=== PATIENT | female | born 2000 | race Caucasian/White ===

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

== ENCOUNTER → 2019-01-08 | Outpatient (CLI) | payer OTHER ==
--- NOTE | 2019-01-08 12:53 | US ---
EXAMINATION TYPE: Transabdominal DATE OF EXAM: 01/08/2019 12:24 PM COMPARISON: NONE CLINICAL HISTORY: Absent heart tones O76. Dates, hx of neg heart tones at office EXAM PERFORMED: Transabdominal (TA) EXAM MEASUREMENTS: GESTATIONAL AGE / DATING Dates by LMP: (12 weeks/0 days) EDC: 07/23/2019 Dates by First Scan: No previous this is first scan Dates by Current Scan for: (12 weeks/0 days) EDC: 07/23/2019 MATERNAL ANATOMY Uterus: 13.5 x 8.7 x 5.0 cm Right Ovary: 3.1 x 1.7 x 1.9 cm Left Ovary: 3.6 x 1.6 x 1.5 cm Post CDS / Adnexa: no free fluid Presence of free fluid: no Presence of corpus luteal cyst: no Presence of subchorionic bleed: no GESTATION / SURVEY CRL: 5.3 cm (12 weeks/0 days) MSD: seen, not measured Yolk Sac (normal less than 6mm): 4.7 mm Heart Rate: 166 bpm Rhythm: Normal IUP: Live IUP Date of LMP: 10/16/2018, G1 Beta HcG (if available): Not available at this time Single live IUP measuring 12 weeks 0 days IMPRESSION: Single live intrauterine with a sonographic age of 12 weeks and 0 days and teodora mated date of delivery of 07/23/2019, concordant with menstrual age. heart rate is measured at 1 66 bpm.
== END | disposition home or self-care (01) ==
LOC: RADUSWWP 11:59
PROVIDERS: ATTEND Obstetrics & Gynecology
DX: O76 Abnormality in fetal heart rate and rhythm complicating labor and delivery (principal); Z3A.12 12 weeks gestation of pregnancy; Z34.01 Encounter for supervision of normal first pregnancy, first trimester
CPT/HCPCS: 76801; 84702

== ENCOUNTER 2019-02-02 15:53 | Emergency (ER) | payer OTHER ==
[2019-02-02 15:56] VITALS: BP 116/80; PULSE 96; RESP 16; TEMP 98.1
[2019-02-02] MEDS ORDERED: ACETAMINOPHEN TAB 325 MG TAB PO STA (16:10)
--- NOTE | 2019-02-02 16:17 | ED ---
General Adult HPI - General Chief complaint: ENT Stated complaint: 15 wks preg/poss flu Time Seen by Provider: 02/02/19 15:57 Source: patient Mode of arrival: ambulatory Limitations: no limitations - History of Present Illness Initial comments: Patient is a 18-year-old female presenting to the emergency Department with complaints of congestion and a mild cough for the past 3 days. Patient states she was at her PROGRAM ARCHITECT's office today, Dr. Silverio, who suggested she come to the ER to be seen to make sure she does not have strep or influenza. Patient is currently 15 weeks , no complications thus far. Patient denies having a fever, chills. Patient does admit to some occasional body aches and a mild headache. Patient states her symptoms started approximately 3 days ago with a sore throat followed by some nasal congestion and stuffy nose. Patient does have a mild cough. Patient has no other complaints at this time. Patient did admit to the and phoned the vaccine issue. Upon arrival to the ER, vital signs are stable, afebrile. - Related Data Home Medications Medication Instructions Recorded Confirmed Hpy-Itnl-Ccvuq Acid 1 cap PO DAILY 02/02/19 02/02/19 [-U Capsule (formulary)] Allergies Allergy/AdvReac Type Severity Reaction Status Date / Time No Known Allergies Allergy Verified 02/02/19 17:15 Review of Systems ROS Statement: Those systems with pertinent positive or pertinent negative responses have been documented in the HPI. ROS Other: All systems not noted in ROS Statement are negative. Past Medical History Past Medical History: No Reported History History of Any Multi-Drug Resistant Organisms: None Reported Past Surgical History: No Surgical Hx Reported Past Psychological History: No Psychological Hx Reported Smoking Status: Former smoker Past Alcohol Use History: None Reported Past Drug Use History: None Reported General Exam - General Exam Comments Initial Comments: GENERAL: Well-appearing, well-nourished and in no acute distress. HEAD: Atraumatic, normocephalic. EYES: Pupils equal round and reactive to light, extraocular movements intact, sclera anicteric, conjunctiva are normal. ENT: TMs normal, nares patent, oropharynx clear without exudates. Moist mucous membranes. NECK: Normal range of motion, supple without lymphadenopathy or JVD. LUNGS: Breath sounds clear to auscultation bilaterally and equal. No wheezes rales or rhonchi. HEART: Regular rate and rhythm without murmurs, rubs or gallops. ABDOMEN: Soft, nontender, normoactive bowel sounds. No guarding, no rebound. No masses appreciated. : Deferred EXTREMITIES: Normal range of motion, no pitting or edema. No clubbing or cyanosis. NEUROLOGICAL: Cranial nerves II through XII grossly intact. Normal speech, normal gait. PSYCH: Normal mood, normal affect. SKIN: Warm, Dry, normal turgor, no rashes or lesions noted. Limitations: no limitations Course Vital Signs 02/02/19 15:54 Temperature 98.1 F Pulse Rate 96 Respiratory 16 Rate Blood Pressure 116/80 O2 Sat by Pulse 97 Oximetry Medical Decision Making - Medical Decision Making Patient is a 18-year-old female presenting with a sore throat and cough who sent for Dr. Silverio's office for evaluation of possible strep or influenza. Patient is currently 15 weeks . Vital signs are stable. Exam is unremarkable. A flu and strep are both negative. I discussed with patient is most likely viral in nature. Patient can take Tylenol for discomfort. Patient will follow back up with PROGRAM ARCHITECT. Patient is stable for discharge at this time. Return parameters were discussed with the patient and she verbalized understanding. - Lab Data Lab Results 02/02/19 02/02/19 Range/Units 16:25 16:35 Influenza Type A RNA Not Detected (Not Detectd) Influenza Type B (PCR) Not Detected (Not Detectd) Group A Strep Rapid Negative (Negative) Disposition Clinical Impression: Viral illness Disposition: HOME SELF-CARE Condition: Stable Instructions (If sedation given, give patient instructions): Cold Symptoms (ED) Additional Instructions: Please return to the Emergency Department if symptoms worsen or any other concerns. Follow-up with PROGRAM ARCHITECT. Continue with Tylenol for headache. Trial of saline nasal spray for congestion. Is patient prescribed a controlled substance at d/c from ED?: No Referrals: None,Stated [Primary Care Provider] - 1-2 days Emperatriz Silverio DO [Doctor of Osteopathic Medicine] - 1-2 days
== END 2019-02-02 17:23 | disposition home or self-care (01) ==
LOC: EC 15:53
DX: O98.512 Other viral diseases complicating pregnancy, second trimester (principal); Z87.891 Personal history of nicotine dependence; Z3A.15 15 weeks gestation of pregnancy
CPT/HCPCS: 87081; 87430; 87502; 99284

== ENCOUNTER → 2019-03-01 | Outpatient (CLI) | payer OTHER ==
--- NOTE | 2019-03-01 11:17 | US ---
EXAMINATION TYPE: US OB anatomy transabd DATE OF EXAM: 03/01/2019 COMPARISON: NONE HISTORY: O36.62X0 large for dates anatomy scan. TECHNIQUE: Transabdominal (TA) EXAM MEASUREMENTS: GESTATIONAL AGE / DATING Physician Established: (19 weeks/3 days) EDC: 07/23/2019 Dates by LMP: (19 weeks/3 days) EDC: 07/23/2019 Dates by First Scan: (12 weeks/0 days) EDC: 07/23/2019 Dates by Current Scan for: (19 weeks/1 days) EDC: 07/25/2019 SURVEY IUP: Single PLACENTA: Posterior PREVIA: No previa GIN: 14.45 cm Normal CERVICAL LENGTH (transabdominal: norm > 3.0cm): 4.0 cm BIOMETRY PRESENTATION: Variable LIE: Variable BPD: 4.40 cm 19 weeks / 2 days HC: 16.6 cm 19 weeks / 2 days AC: 14.13 cm 19 weeks / 3 days FL: 2.98 cm 19 weeks / 1 days ESTIMATED WEIGHT IN GRAMS: 287.83 grams ESTIMATED WEIGHT IN LBS/OZ: 0 lbs. 10 oz. WEIGHT PERCENTAGE BASED ON ESTABLISHED DATE: 40.9 % HC/AC: 1.18 cm Normal FL/AC: 21.10cm Normal HEART RATE: 153 bpm RHYTHM: Normal ANATOMY SEEN (within normal limits): * Lateral Vent (< 1 cm) .8 cm * Cisterna Magna (< 1.1 cm) .5 cm * Nuchal Fold (< 0.6 cm) .3 cm * Cerebellum (varies with age) 2.0 cm Choroid Plexus (bilateral) Midline Falx Cavus Septi Pellucidi Four Chamber Heart Stomach Nose / Lips Kidneys (bilateral) Bladder Cord Insert Three Vessel Cord Arms (bilateral) Legs (bilateral) ANATOMY NOT SEEN: Diaphragm Spine Outflow tracts situs Patient is set up to come back in two weeks for additional images. IMPRESSION: 1. Low-lying placenta with the placental tip terminating 2.8 cm from the internal cervical os. Contin ued surveillance is recommended. 2. Single live intrauterine with a sonographic age of 19 weeks and 1 day and estimated date of delivery of 07/25/2019, concordant with menstrual age. The patient will return for additional imag es of the diaphragm, spine, and outflow tracts situs.
== END | disposition home or self-care (01) ==
LOC: RADUSWWP 08:36
PROVIDERS: ATTEND Obstetrics & Gynecology
DX: O44.42 Low lying placenta NOS or without hemorrhage, second trimester (principal); O36.62X0 Maternal care for excessive fetal growth, second trimester, not applicable or unspecified; Z3A.19 19 weeks gestation of pregnancy
CPT/HCPCS: 76811

== ENCOUNTER → 2019-03-01 | Outpatient (CLI) | payer OTHER ==
[2019-03-01 12:40] LABS: HCT 37.4 % (34.0-46.0); HGB 13.1 gm/dL (11.4-16.0); MCH 33.1 pg (25.0-35.0); MCHC 34.9 g/dL (31.0-37.0); MCV 94.9 fL (80.0-100.0); Mean Platelet Volume 7.4; Platelet Count 226 k/uL (150-450); RBC 3.94 m/uL (3.80-5.40); RDW 13.2 % (11.5-15.5); WBC 8.7 k/uL (4.0-11.0)
[2019-03-01 16:43] LABS: African American GFR (CKD) 153.1 (60.0-200.0); Non-African American GFR(CKD) 132.1 (60.0-200.0)
[2019-03-01 17:04] LABS: HIV 1 AB Non-Reactive (Non-Reactive); HIV 2 AB Non-Reactive (Non-Reactive); HIV AB P24 Non-Reactive (Non-Reactive); HIV P24 AG Non-Reactive (Non-Reactive)
[2019-03-01 17:56] LABS: Hepatitis B Surface Antigen Non-Reactive (Non-Reactive)
[2019-03-02 04:16] LABS: Toxoplasma Antibody (IgG) <3.0 IU/mL (<7.2); Toxoplasma Antibody (IgM) <3.0 AU/mL (<8.0)
[2019-03-02 08:41] LABS: Alpha Fetoprotein 40.5 ng/mL; Alpha Fetoprotein (M.O.M) 0.91; B-HCG (M.O.M.) 1.14; Gestational Age (days) 3; Human Chorionic Gonadotropin 19.3 IU/mL; Inhibin A (M.O.M.) 0.74; Interpretation SeeBelow; Maternal Age at EDD (Yrs) 19; Smoker No; Unconjugated Estriol (M.O.M.) 1.06
== END | disposition home or self-care (01) ==
LOC: LABWHC1 10:48
PROVIDERS: ATTEND Obstetrics & Gynecology
DX: Z34.02 Encounter for supervision of normal first pregnancy, second trimester (principal); Z3A.00 Weeks of gestation of pregnancy not specified
CPT/HCPCS: 36415; 82105; 82565; 82677; 82947; 84702; 85027; 86336; 86762; 86777; 86778; 86780; 86900; 86901; 87340; 87390